=== PATIENT | female | born 1985 | race Hispanic/Latino ===

== ENCOUNTER 2021-03-03 08:11 | Day surgery (SDC) | payer OTHER ==
[2021-03-01 12:30] VITALS: BP 121/64
[~2021-03-03] VITALS: Ht 165.1 cm; Wt 107.1 kg
[2021-03-03] VITALS (14 sets, daily range): BP systolic 111–143; BP diastolic 56–86
[2021-03-03] MEDS ORDERED: LACTATED RINGERS 1000ML 1,000 ML IV ONE (08:57)
[2021-03-03] MEDS ORDERED: CEFAZOLIN SODIUM 1 GM VIAL ONE (09:18)
[2021-03-03] MEDS: CEFAZOLIN SODIUM 1 GM VIAL IVP ONE ×2 (09:21→10:29)
[2021-03-03] MEDS ORDERED: IOHEXOL-350 50ML VIAL IV ONE (09:40)
[2021-03-03] MEDS ORDERED: BUPIVACAINE/EPI/PF 0.5% 30ML VIAL IJ ONE (10:14)
[2021-03-03] MEDS ORDERED: LIDOCAINE PF 100MG/5ML (2%) SYRINGE 5ML ONE (10:25)
[2021-03-03] MEDS ORDERED: PROPOFOL 10 MG/ML 20ML VIAL IV ONE (10:25)
[2021-03-03] MEDS ORDERED: ROCURONIUM 10MG/1ML SYR 10 MG/ML ML ONE (10:25)
[2021-03-03] MEDS ORDERED: MIDAZOLAM HCL 1 MG/ML 2ML VIAL ONE (10:25)
[2021-03-03] MEDS ORDERED: FENTANYL CITRATE PF 50 MCG/1 ML 2ML VIAL ONE (10:25)
[2021-03-03] MEDS ORDERED: GLYCOPYRROLATE 1 MG/5 ML SYRINGE ONE (10:43)
[2021-03-03] MEDS ORDERED: NEOSTIGMINE 5MG/5ML SYR IV ONE (11:11)
[2021-03-03] MEDS ORDERED: MEPERIDINE-PF 25 MG/ML SYG ONE (11:38)
== END 2021-03-03 13:00 | disposition home or self-care (01) ==
LOC: DAH 08:11
PROVIDERS: ATTEND Surgery
DX: K81.1 Chronic cholecystitis (principal); Z20.822 Contact with and (suspected) exposure to COVID-19; E66.9 Obesity, unspecified; Z98.891 History of uterine scar from previous surgery; Z68.39 Body mass index [BMI] 39.0-39.9, adult; Z79.899 Other long term (current) drug therapy; Z98.890 Other specified postprocedural states
CPT/HCPCS: 47563; 74300; 87635; A4215; A4221; A4222; A4223; A4600; A4649; A4663; A4930 ×3; C1758; C9803; J0690 ×2; J2001; J2175; J2250; J2704; J2710; J3010; J3490 ×2; J7030; J7120; Q9967